=== PATIENT | female | born 1930 | race Caucasian/White ===

== ENCOUNTER 2017-07-21 14:27 | Outpatient (CLI) | payer MEDICARE ==
[2017-07-21 15:10] LABS: Anion Gap 16 mmol/L (10-20); BUN (Urea Nitrogen) 11 mg/dL (9.8-20.1); Calc. Creatinine Clearance 0 mL/min (70-130); Calcium 9.7 mg/dL (7.8-10.44); Carbon Dioxide 28 mmol/L (23-31); Chloride 102 mmol/L (98-107); Estimated GFR-MDRD 84; Glucose 102 mg/dL (83-110); Potassium 4.9 mmol/L (3.5-5.1); Sodium 141 mmol/L (136-145)
== END 2017-07-21 14:28 | disposition home or self-care (01) ==
LOC: MADLAB 14:27
PROVIDERS: ATTEND Student in an Organized Health Care Education/Training Program
DX: I12.9 Hypertensive chronic kidney disease with stage 1 through stage 4 chronic kidney disease, or unspecified chronic kidney disease (principal); N18.9 Chronic kidney disease, unspecified; K52.89 Other specified noninfective gastroenteritis and colitis
CPT/HCPCS: 80048

== ENCOUNTER 2018-11-05 10:23 | Outpatient (CLI) | payer MEDICARE ==
--- NOTE | 2018-11-05 13:20 | RAD ---
CERVICAL SPINE 4 VIEW SERIES: INDICATION: Right radicular pain, numbness at C5-6 dermatomal level. FINDINGS: There is limited evaluation by blurring due to motion. There is moderate multilevel degenerative mike nge of the cervical spine with retrolisthesis of C5-6. Prominent multilevel osseous hypertrophy of t he facet joints is present. Lateral masses of C1 demonstrate degenerative sclerosis and osteophytosi s. Dens is grossly intact. There is multilevel osseous narrowing and neural foramina due to degener ative hypertrophy. IMPRESSION: 1. 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 2. Retrolisthesis at C5-6 level. 3. No definite evidence of an acute fracture. POS: C
== END 2018-11-05 10:24 | disposition home or self-care (01) ==
LOC: MADRAD 10:23
PROVIDERS: ATTEND Family Medicine
DX: M47.22 Other spondylosis with radiculopathy, cervical region (principal); M43.12 Spondylolisthesis, cervical region
CPT/HCPCS: 72050